=== PATIENT | male | born 1940 | race Caucasian/White ===

== ENCOUNTER 2018-09-08 07:40 | Day surgery (SDC) | payer OTHER ==
[2018-09-06 15:40] VITALS: BP 115/59
[2018-09-06 16:01] LABS: BASOPHILS % (AUTO) 0.6 % (0.0-5.0); EOSINOPHILS % (AUTO) 2.7 % (0.0-8.0); HEMATOCRIT 39.9 % (42-54); LYMPHOCYTES % (AUTO) 27.8 % (21.0-51.0); MEAN CORPUSCULAR HEMOGLOBIN 32.4 pg (27.0-33.0); MEAN CORPUSCULAR HGB CONC 33.8 g/dL (32.0-36.0); MEAN CORPUSCULAR VOLUME 96.1 fL (79-99); MONOCYTES % (AUTO) 10.3 % (3.0-13.0); NEUTROPHILS % (AUTO) 58.6 % (40.0-77.0); PLATELET COUNT (AUTO) 225 K/uL (130-400); RED BLOOD CELL COUNT(AUTO) 4.15 MIL/uL (4.50-6.20); RED CELL DISTRIBUTION WIDTH 12.8 % (11.0-15.5); WHITE BLOOD COUNT (AUTO) 5.9 K/uL (4.8-10.8)
[2018-09-06 16:02] LABS: APPEARANCE,URINE Clear (CLEAR); BILIRUBIN,URINE Negative (NEGATIVE); COLOR,URINE Yellow (YELLOW); GLUCOSE, URINE (UA) Negative (NEGATIVE); KETONES,URINE Negative (NEGATIVE); LEUKOCYTE ESTERASE ,URINE Negative (NEGATIVE); NITRATE,URINE Negative (NEGATIVE); OCCULT BLOOD,URINE Negative (NEGATIVE); PH,URINE 6.5 (5.0-8.0); PROTEIN,URINE Negative (NEGATIVE)
[2018-09-06 16:17] LABS: CREATININE 1.1 mg/dL (0.5-1.5); POTASSIUM 4.2 mmol/L (3.5-5.1)
[2018-09-06 16:23] LABS: INR 0.95 (0.85-1.15); PARTIAL THROMBOPLASTIN TIME 32.4 SEC (26.3-35.5)
[2018-09-08] VITALS (10 sets, daily range): BP systolic 128–149; BP diastolic 61–77
[~2018-09-08] VITALS: Ht 175.3 cm; Wt 74.0 kg
[~2018-09-08 07:40] MED LIST: ASPI-555 PO; ATOR40TA71 PO; AZIT250T9 PO; DIAZ5TAB PO; FINA5TAB41 PO; FISH OIL PO; FLUT1BLS3 IH; HYDR12.54 PO; SLEEP AID PO; SODIUM CHLORIDE 0.9% 500ML 500 ML IV SCH; TAMS0.4C32 PO; VITAMIN A PO; VITAMIN B PO; VITAMIN C PO; VITAMIN E PO
[2018-09-08] MEDS ORDERED: SODIUM CHLORIDE 0.9% 1000ML 1,000 ML IV ONE (08:16)
[2018-09-08] MEDS ORDERED: NITROGLYCERIN 5 MG/ML 10 ML VIAL IV ONE (11:18)
[2018-09-08] MEDS ORDERED: IOHEXOL-350 50ML VIAL IV ONE (11:18)
[2018-09-08] MEDS ORDERED: IOHEXOL 350 MG/ML 100ML INFUS..BTL IV ONE (11:18)
[2018-09-08] MEDS ORDERED: LIDOCAINE HCL 2% 20ML ONE (11:18)
[2018-09-08] MEDS ORDERED: HEPARIN SODIUM 1000UNIT/ML 10ML VIAL ONE (12:09)
[2018-09-08] MEDS ORDERED: ADENOSINE 90MG/30ML VIAL IV ONE (12:12)
[2018-09-08] MEDS ORDERED: AMINOPHYLLINE IV SCH (12:30)
[2018-09-08] MEDS ORDERED: SODIUM CHLORIDE 0.9% 50 ML IV SCH (12:30)
[2018-09-08] MEDS ORDERED: SODIUM CHLORIDE 0.9% IV SCH (12:30)
[2018-09-08] MEDS ORDERED: SODIUM CHLORIDE 0.9% 1000ML 1,000 ML IV SCH (12:59)
--- NOTE | 2018-09-08 13:20 | NUR ---
PROCEDURE RECEIVED PT FROM [employer]IP [employer]PERATOR STAFF TIERA DENISE. PT DOING WELL. INSTRUCTED TO LIE FLAT AND NOT LIFT RIGHT LEG OR HEAD. BOTH PT AND FAMILY VERBALIZED UNDERSTANDING. SITE TO RIGHT GROIN SOFT TO TOUCH.
[2018-09-08] MEDS ORDERED: ACETAMINOPHEN 325 MG TAB ONE (16:42)
[2018-09-08] MEDS ORDERED: ACETAMINOPHEN 325 MG TAB PO SCH (16:45)
--- NOTE | 2018-09-08 17:30 | NUR ---
DISCHARGE ORAL AND WRITTEN DISCHARGE INSTRUCTIONS GIVEN TO PT AND PTS . NO QUESTIONS AT THIS TIME. INSTRUCTED ON IMPORTANCE OF MONITORING SITE AT HOME. VERBALIZED UNDERSTANDING.
== END 2018-09-08 17:40 | disposition home or self-care (01) ==
LOC: DAH 07:40
PROVIDERS: ATTEND Internal Medicine Cardiovascular Disease
DX: I25.10 Atherosclerotic heart disease of native coronary artery without angina pectoris (principal); Z79.01 Long term (current) use of anticoagulants; R06.00 Dyspnea, unspecified
CPT/HCPCS: 36415; 71045; 80048; 81003; 85025; 85610; 85730; 93005; 93458; 93571; 93572; A4606; C1760; C1769; C1887 ×2; C1894; J0153; J0280; J1644 ×2; J3490 ×2; J7030; Q9965 ×2; Q9967 ×2